=== PATIENT | female | born 1980 | race Caucasian/White ===

== ENCOUNTER 2021-08-15 12:51 | Emergency (ER) | payer SELFPAY ==
[2021-08-15 12:54] VITALS: BP 154/91; PULSE 69; RESP 18; TEMP 36.1; O2SAT 99
--- NOTE | 2021-08-15 13:00 | PC.NURSE ---
PT SHOVED PAST RN AND RAN OUT THE EMS DOORS, REFUSED TO STOP. HERACLIO ORTA CONTACTED AND ESCORTING PATIENT BACK INTO ROOM.
--- NOTE | 2021-08-15 13:40 | PC.NURSE ---
Pt uncooperative with care. MD aware. Pt agreed to lab draw and Ativan, refusing to charge or talk about situation leading to her coming to ER.
[2021-08-15] MEDS: LORazepam INJ (*CRX) 2 MG/ML VIAL IM (13:47)
--- NOTE | 2021-08-15 14:00 | PC.NURSE ---
Spoke with Alyson at [facility]. Per Alyson pt will have bed at [facility] in [place] after medical clearance. Once medical clearance is finished we are to fax paperwork to [phone]. Alyson states they will have their doctor look over the paperwork and will call us back. Per Alyson if we have any trouble we can give her a call back.
[2021-08-15 14:10] LABS: Basophils Absolute Auto 0.1 K/mm3 (0.0-0.1); Basophils Percent Auto 0.6 % (0.2-1.2); Eosinophils Absolute Auto 0.2 K/mm3 (0-0.3); Eosinophils Percent Auto 2.1 % (0-4.4); Immature Granulocyte Absolute 0.02 K/mm3 (0.00-0.031); Immature Granulocyte Percent A 0.2 % (0-0.5); Lymphocytes Absolute Auto 2.33 K/mm3 (0.9-3.2); Lymphocytes Percent Auto 26.8 % (18.3-44.2); Mean Corpuscular HGB Conc 32.4 g/dl (32-36); Mean Corpuscular Volume 80.3 fl (80-100); Mean Platelet Volume 9.9 fl (7.4-10.4); Monocytes Absolute Auto 0.6 K/mm3 (0.1-0.6); Monocytes Percent Auto 7.1 % (2.6-8.5); Neutrophils Absolute Auto 5.5 K/mm3 (1.3-6.7); Neutrophils Percent Auto 63.2 % (45.5-73.1); Platelet Count Result 382 k/mm3 (150-375); Red Blood Count 4.61 M/mm3 (4.2-5.4); Red Cell Distribution Width 17.2 % (11.5-14.5); White Blood Count 8.7 K/mm3 (4.5-10.0)
--- NOTE | 2021-08-15 14:14 | ED.GENADULT ---
HPI - General Adult General Chief complaint: Psychiatric Symptoms Stated complaint: SI WITH PLAN INVOLUNTARY History of Present Illness HPI narrative: 32-year-old female presented emerged department evaluation of worsening suicidal ideation and reported intent to act on these ideations. Patient's friend also stated that the patient has been hoarding her pills and making statements that she does want to kill herself. Patient was evaluated at an outside facility and involuntary placement was arranged. In response to this patient eloped from that facility and was ultimately brought to our facility by EMS and police. Once here. Once again tried to elope. Related Data Allergies Allergy/AdvReac Type Severity Reaction Status Date / Time azithromycin Allergy Hives Verified 08/15/21 13:46 haloperidol [From Haldol] Allergy Other Verified 08/15/21 13:46 Review of Systems Review of Systems: CONSTITUTIONAL: Denies fever, chills, or sweats. EYES: Denies visual changes, redness, or discharge. ENT: Denies rhinorrhea, congestion, sore throat, or otalgia. CARDIOVASCULAR: Denies chest pain, palpitations, or edema. RESPIRATORY: Denies cough or dyspnea. GASTROINTESTINAL: Denies abdominal pain, nausea, vomiting, or diarrhea. GENITOURINARY: Denies dysuria or hematuria. SKIN: Denies rash or itching. MUSCULOSKELETAL: Denies back pain, joint pain, or myalgia. NEUROLOGIC: Denies headache, numbness, or weakness. PSYCHIATRIC: Depression and suicidal ideation [facility] Social History Social History Substance use type: does not use Exam Narrative: APPEARANCE: No acute distress, nontoxic, resting in bed EYES: EOMI HEENT: Normocephalic, atraumatic, OMM RESPIRATORY: No respiratory distress Clear to auscultation bilaterally with no rhonchi wheezing or rales. CARDIOVASCULAR: Regular rate and rhythm without murmurs rubs or gallops. ABDOMINAL: Soft, nontender, nondistended, no rebound or guarding MUSCULOSKELETAl: Moves all extremities. No clubbing, cyanosis or edema. NEURO: Awake and alert. Following commands, speech normal, no focal deficits SKIN:: Warm, dry. No rashes lesions or abrasions PSYCHIATRIC: Depressed affect Course Course Emergency Course: Patient was initially reluctant to participate with the exam. Patient ultimately was treated with 2 mg of IM Ativan. Patient was then willing to have labs drawn, and to volunteer her clothing. Patient had involuntary placement submitted by the counselor that interacted with her earlier in the day. Patient was accepted to [facility] by Dr. Aaron. Patient was stable at time of transfer. Reevaluation(s) Reevaluation #1: Patient is medically cleared for discharge from the emergency department and for inpatient psychiatric placement. Vital Signs Vital signs: Vital Signs Temperature 97.0 F L 08/15/21 12:54 Pulse Rate 69 08/15/21 12:54 Respiratory Rate 18 08/15/21 12:54 Blood Pressure 154/91 H 08/15/21 12:54 Pulse Oximetry 99 08/15/21 12:54 Oxygen Delivery Room Air 08/15/21 12:54 Temperature 97.0 F L 08/15/21 12:54 Pulse Rate 69 08/15/21 12:54 Respiratory Rate 18 08/15/21 12:54 Blood Pressure 154/91 H 08/15/21 12:54 Pulse Oximetry 99 08/15/21 12:54 Oxygen Delivery Room Air 08/15/21 12:54 Medical Decision Making Vital Signs Vital Signs: Vital Signs Temperature 97.0 F L 08/15/21 12:54 Pulse Rate 69 08/15/21 12:54 Respiratory Rate 18 08/15/21 12:54 Blood Pressure 154/91 H 08/15/21 12:54 Pulse Oximetry 99 08/15/21 12:54 Oxygen Delivery Room Air 08/15/21 12:54 Temperature 97.0 F L 08/15/21 12:54 Pulse Rate 69 08/15/21 12:54 Respiratory Rate 18 08/15/21 12:54 Blood Pressure 154/91 H 08/15/21 12:54 Pulse Oximetry 99 08/15/21 12:54 Oxygen Delivery Room Air 08/15/21 12:54 Lab Data Lab results reviewed: Yes I reviewed the patient's lab results. Result diagrams: 08/15/21 14:00 08/15/21 14:00
[2021-08-15 14:25] LABS: Acetaminophen < 10 ug/mL (10-30); Ethanol < 10 mg/dL (<10); Salicylate < 1.0 mg/dL (2-20)
[2021-08-15 14:27] LABS: Alanine Aminotransferase 35 U/L (6-35); Albumin Level 4.3 g/dL (3.5-5.1); Alkaline Phosphatase 73 U/L (38-126); Anion Gap 9 mmol/L (8-16); Aspartate Amino Transferase 28 U/L (14-36); Bilirubin,Total 0.4 mg/dL (0.2-1.3); Blood Urea Nitrogen 9 mg/dL (7-17); Calcium 9.1 mg/dL (8.4-10.2); Carbon Dioxide 23 mmol/L (22-30); Chloride 107 mmol/L (98-107); Estimated CRCL calculation 125 ml/min; Estimated Glomerular Filt Rate > 60; Glucose 114 mg/dL (65-110); Magnesium 1.7 mg/dL (1.6-2.3); Potassium 3.5 mmol/L (3.4-5.0); Sodium 139 mmol/L (137-145)
--- NOTE | 2021-08-15 14:27 | PC.NURSE ---
Pt allowed nurse to draw labs, give ativan. Belongings secured, safety council director at bedside. Still refusing EKG and urine at this time. Will alert .
[2021-08-15 14:46] LABS: SARS-CoV-2 RNA PCR Negative
--- NOTE | 2021-08-15 14:55 | PC.NURSE ---
Spoke with Alyson at [facility]. Per Alyson pt does not need EKG for her medical clearance. Pt just needs basic medical clearance.
[2021-08-15 15:02] LABS: Appearance Urine Slightly Cloudy (Clear); Bilirubin Urine Negative (Negative); Blood Urine Negative (Negative); Color Urine Yellow (Yellow); Glucose Urine UA Negative (Negative); Ketones Urine Negative (Negative); Leukocyte Esterase Ur 2+ LEU/UL (Negative); Nitrate Urine Negative (Negative); Protein Urine Negative (Negative); Specific Grav Ur 1.025 (1.001-1.035); Urobilinogen Urine 0.2 mg/dL (<2.0); pH Urine 5.5 (5.0-9.0)
[2021-08-15 15:06] LABS: Bacteria Urine Trace /hpf; Mucus Urine Rare /lpf; Squamous Epithelial Cell Urine Many /hpf (Few)
[2021-08-15 15:07] LABS: Add Urine Microscopic? YES
[2021-08-15 15:16] LABS: Amphetamine Screen Urine Negative (Negative); Barbiturate Screen Urine Negative (Negative); Benzodiazepines Screen Urine Positive (Negative); Cannabinoid Screen Urine Negative (Negative); Cocaine Screen Urine Negative (Negative); Methadone Screen Urine Negative (Negative); Opiate Screen Urine Negative (Negative); Phencyclidine Screen Urine Negative (Negative)
--- NOTE | 2021-08-15 15:22 | PC.NURSE ---
EKG cancelled, not needed for medical clearance. aware.
--- NOTE | 2021-08-15 15:23 | PC.NURSE ---
Per Dr Moody, patient is medically cleared at this time.
--- NOTE | 2021-08-15 15:30 | PC.NURSE ---
Pt resting comfortably, cooperative with care to obtain urine. Sleeping at this time. qualified craft worker electrician at bedside. Pt did admit to this RN she was having suicidal thoughts, did have a plan, and did intend to act on them. Admits to prior attempt at suicide in May.
--- NOTE | 2021-08-15 15:41 | PC.NURSE ---
This RN faxed pt records to [facility] RN and INTAKE numbers as requested.
--- NOTE | 2021-08-15 15:41 | PC.NURSE ---
paper work faxed to [facility].
--- NOTE | 2021-08-15 17:03 | PC.NURSE ---
PATIENT ACCEPTED TO [facility] [id number] [facility] [phone] ROBERTS
--- NOTE | 2021-08-15 17:17 | PC.NURSE ---
RN REPORT GIVEN TO HUY CAUSEY TO CALL FOR TRANSPORTATION NOW.
--- NOTE | 2021-08-15 17:38 | PC.NURSE ---
[facility] - [facility] accepted ETA [facility] #[id number] [facility] - Declined [facility] - Declined
--- NOTE | 2021-08-15 20:27 | PC.NURSE ---
[facility] here.
== END 2021-08-15 20:36 ==
PROVIDERS: Emergency Provider Emergency Medicine
DX: R45.851 Suicidal ideations (principal); F32.9 Major depressive disorder, single episode, unspecified; Z20.822 Contact with and (suspected) exposure to COVID-19
CPT/HCPCS: 36415; 80053; 80307; 81001; 81025; 83735; 84443; 85025; 87086; 87088; 96372; 99285; C9803; J2060; U0003; U0005